=== PATIENT | male | born 1970 | race Caucasian/White ===

== ENCOUNTER 2021-01-01 20:00 | Emergency (ER) | payer OTHER ==
[~2021-01-01] VITALS: Ht 193 cm; Wt 122.5 kg
[~2021-01-01 20:00] MED LIST: ANTIVERT12.5 MG PO; ANTIVERT25 MG PO; BACTRIM DS TAB1 EACH PO; CEFDINIR300 MG PO; CHOLESTEROL MED; NEXIUM; ONDANSETRON HCL4 M2 PO; VICODIN 5-5001 EACH PO; ZOFRAN ODT4 MG PO
[2021-01-01] MEDS ORDERED: ASA81BEC PO (20:15)
[2021-01-01] MEDS ORDERED: NORVASC5 MG PO (20:15)
[2021-01-01] MEDS ORDERED: TAMSULOSIN HCL0.4 MG PO (20:15)
[2021-01-01] MEDS ORDERED: DESVENLAFAXINE100 MG PO (20:16)
[2021-01-01 20:48] LABS: ABSOLUTE BASOPHILS 0.1 thou/uL (0.0-0.2); ABSOLUTE EOSINOPHILS 0.2 thou/uL (0.0-0.7); ABSOLUTE LYMPHOCYTES 2.6 thou/uL (0.8-5.3); ABSOLUTE MONOCYTES 0.6 thou/uL (0.0-1.2); ABSOLUTE NEUTROPHILS 3.6 thou/uL (1.6-8.1); BASOPHILS 0.7 %; EOSINOPHILS 2.9 %; HEMATOCRIT 43.9 % (42.0-52.0); HEMOGLOBIN 15.7 gm/dL (14.0-18.0); LYMPHOCYTES 36.9 %; MCHC 35.9 g/dL (28.0-37.0); MCV 89.1 fL (80.0-100.0); MONOCYTES 8.3 %; MPV 7.4 fl. (7.2-11.1); NUCLEATED RBCS 0 /100WBC; PLATELET COUNT* 242 thou/uL (150-400); POLYS 51.2 %; RBC 4.92 mil/uL (4.50-6.00); RDW-CV 12.8 % (10.5-14.5)
[2021-01-01 20:57] LABS: CALCIUM 8.9 mg/dL (8.5-10.1); CREATININE 1.1 mg/dL (0.6-1.3)
[2021-01-01 20:58] LABS: URINE BILIRUBIN NEGATIVE (Negative); URINE BLOOD NEGATIVE (Negative); URINE CLARITY CLEAR; URINE COLOR YELLOW; URINE GLUCOSE-RANDOM NEGATIVE (Negative); URINE KETONES NEGATIVE (Negative); URINE LEUKOCYTES-REFLEX NEGATIVE (Negative); URINE NITRITE-REFLEX NEGATIVE (Negative); URINE PROTEIN NEGATIVE (Negative); URINE UROBILINOGEN 0.2 E.U./dl (0.2-1.0)
[2021-01-01 21:02] LABS: ALBUMIN 3.7 g/dL (3.4-5.0); TOTAL BILIRUBIN 0.5 mg/dL (<0.1-1.0); TOTAL PROTEIN 6.9 g/dL (6.4-8.2)
[2021-01-01] MEDS ORDERED: HYDROCODON-ACE1 EAC8 PO (22:27)
[2021-01-01] MEDS ORDERED: FLEXERIL PO (22:27)
[2021-01-01 22:32] VITALS: BP 125/70
== END 2021-01-01 22:32 | disposition home or self-care (01) ==
LOC: M.ERS 20:00
PROVIDERS: Emergency Medicine
DX: M54.5 Low back pain (principal); Z20.822 Contact with and (suspected) exposure to COVID-19; R10.31 Right lower quadrant pain; K21.9 Gastro-esophageal reflux disease without esophagitis; E78.00 Pure hypercholesterolemia, unspecified; Z90.89 Acquired absence of other organs; Z88.0 Allergy status to penicillin; Z87.442 Personal history of urinary calculi